=== PATIENT | male | born 1935 | race Caucasian/White ===

== ENCOUNTER 2022-10-14 11:21 | Emergency (ER) | payer MEDICARE, SELFPAY ==
[2022-10-14] VITALS (17 sets, daily range): BP systolic 140–203; BP diastolic 68–120; PULSE 66–86; RESP 11–22; TEMP 36.2; O2SAT 93–99; BMI 25.1
--- NOTE | 2022-10-14 11:34 | ED_ITS ---
HPI - Neuro Symptoms/Deficit <Cristal Godinez DO - Last Filed: 10/15/22 10:46> General Chief Complaint: Neuro Symptoms/Deficit Stated Complaint: thinks he leigh ann had a stroke last night Time Seen by Provider: 10/14/22 11:34 Source: patient Mode of arrival: Ambulatory Limitations: no limitations History of Present Illness HPI Narrative: This is a 86-year-old who presents with concern for possible stroke last night he had some difficulty with words that lasted about 10 minutes and then imp roved. Patient states he felt very tired afterwards went to bed and states woke up this morning and feels normal. He denies any droop or facial changes, no numbness, tingling or weakness gone gait issues no acute vision changes. Patient states he does sometimes get auras he seen his manager support services and talk to a neurologist about it they do not have any acute cause that they have shared with him but he has been told it is not concerning. He denies chest pain or shortness of breath, no headache, no nausea or vomiting no swelling in extremities. Patient states he did start hydrochlorothiazide for hypertension recently wondered if this might be the cause. Patient states he thinks he had a stroke 40 years ago he had an episode where he had what felt like his head being pushed to the side lasted for a period of time resolved was seen in the ED they were unsure the cause and about 10 years ago had a head CT and was told he would had prior stroke. 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 Patient [address] Eleazar Dahl through gets the majority of his care through there. He follows with Cardiology and has an echo scheduled in November or December. He has a strong family history with his mother, aunt and sibling all having strokes. On Anticoagulants: Yes (eliquis) Related Data Allergies Allergy/AdvReac Type Severity Reaction Status Date / Time atenolol Allergy Verified 10/14/22 11:29 lansoprazole [From Prevacid] Allergy Verified 10/14/22 11:29 metoprolol [From Toprol XL] Allergy Verified 10/14/22 11:29 Review of Systems <DO Fifi Pineda Last Filed: 10/15/22 10:46> Review of Systems ROS Unobtainable: All systems reviewed & are unremarkable except as noted in HPI and below Hematologic/Lymphatic On Anticoagulants: Yes (eliquis) Patient History <Cristal Godinez DO - Last Filed: 10/15/22 10:46> Social History Smoking Status: Unknown if ever smoked Smoking Status: Unknown if ever smoked alcohol intake frequency: holidays/special occasions only Substance Use Type: does not use Exam <Cristal Godinez DO - Last Filed: 10/15/22 10:46> Narrative Exam Narrative: GEN: well nourished, well appearing male, alert and oriented x 3, patient appea rs to be in mild distress. HEENT: Atraumatic, pupils are equal round reactive to light, extraocular movements are intact, nares are clear, TMs are clear with no fluid, there is no conjunctival pallor. Throat is clear without any exudates, erythema, tonsillar enlargement or uvular deviation, no facial droop. HEART: Regular rate and rhythm without murmur, clicks, rubs. No carotid bruits, pulses are equal in upper and lower extremities LUNGS:Lungs clear to auscultation, no wheezes, rales, crackles, chest moves symmetrically ABD:bowel sounds normal, soft, non-tender, no guarding, rebound, rigidity, no masses noted, no hepatosplenomegaly :No CVA tenderness MSCL: Non-tender, no muscle atrophy, muscles strength 5/5 upper and lower extremities, full range of motion, normal gait NEURO:CN 2-12 intact, sensation normal. finger nose finger test normal, heel woods test normal, romberg normal SKIN: No rash or skin changes. Initial Vital Signs Initial Vital Signs: Vital Signs Temperature 97.1 F L 10/14/22 11:27 Pulse Rate 84 10/14/22 11:27 Respiratory Rate 15 10/14/22 11:27 Blood Pressure 193/87 H 10/14/22 11:27 Pulse Oximetry 99 10/14/22 11:27 Oxygen Delivery Method 10/14/22 11:27 <Eleanor Still MD - Last Filed: 10/15/22 02:50> Initial Vital Signs Initial Vital Signs: Vital Signs Temperature 97.1 F L 10/14/22 11:27 Pulse Rate 84 10/14/22 11:27 Respiratory Rate 15 10/14/22 11:27 Blood Pressure 193/87 H 10/14/22 11:27 Pulse Oximetry 99 10/14/22 11:27 Oxygen Delivery Method 10/14/22 11:27 Scores <Cristal Godinez DO - Last Filed: 10/15/22 10:46> NIH Stroke Scale Level of Conciousness: Alert, keenly responsive Ask month/age: Answers both questions correctly. Open/close eyes, close hand: Performs both tasks correctly Best gaze horizontal: Normal Visual iniguez: No visual loss Facial palsy: Normal symetrical movement Left arm drift: No drift for full 10 sec Right arm drift: No drift for full 10 sec Left leg drift: No drift for full 5 sec Right leg drift: No drift for full 5 sec Limb ataxia: Absent Sensory on face/arms/legs: Normal, no sensory loss Best language: No aphasia, normal Dysarthria: Normal Extinction or inattention: No abnormality Total NIH Stroke scale score: 0 <Eleanor Still MD - Last Filed: 10/15/22 02:50> NIH Stroke Scale Total NIH Stroke scale score: 0 Course <Cristal Godinez DO - Last Filed: 10/15/22 10:46> Orders Ordered: Discontinued Medications Aspirin (Aspirin 81 Mg Chew Tab) 324 mg PO NOW ONE Stop: 10/14/22 16:29 Last Admin: 10/14/22 17:37 Dose: Not Given Documented By: NILSON Lorazepam (Lorazepam 0.5 Mg Tablet) 1 mg PO NOW ONE Stop: 10/14/22 17:31 Last Admin: 10/14/22 17:34 Dose: 1 mg Documented By: NILSON Vital Signs Vital signs: Vital Signs - 8 hr 10/14/22 19:07 10/14/22 19:58 Pulse Rate 78 75 Respiratory Rate 17 Blood Pressure 140/68 167/74 H Pulse Oximetry 98 96 Oxygen Delivery Method Room Air Room Air <Eleanor Still MD - Last Filed: 10/15/22 02:50> Orders Ordered: Discontinued Medications Aspirin (Aspirin 81 Mg Chew Tab) 324 mg PO NOW ONE Stop: 10/14/22 16:29 Last Admin: 10/14/22 17:37 Dose: Not Given Documented By: NILSON Lorazepam (Lorazepam 0.5 Mg Tablet) 1 mg PO NOW ONE Stop: 10/14/22 17:31 Last Admin: 10/14/22 17:34 Dose: 1 mg Documented By: NILSON Vital Signs Vital signs: Vital Signs - 8 hr 10/14/22 19:07 10/14/22 19:58 Pulse Rate 78 75 Respiratory Rate 17 Blood Pressure 140/68 167/74 H Pulse Oximetry 98 96 Oxygen Delivery Method Room Air Room Air MDM - Neuro Symptoms/Deficit <Cristal Godinez DO - Last Filed: 10/15/22 10:46> Lab Data Result diagrams: 10/14/22 11:40 10/14/22 11:40 Labs: Lab Results 10/14/22 10/14/22 10/14/22 Range/Units 11:40 11:40 11:40 WBC 5.8 (4.5-11.0) X10^3/uL RBC 4.60 (4.5-5.9) X10^6/uL Hgb 14.1 (13.5-17.5) g/dL Hct 42.6 (41-53) % MCV 92.6 (80-100) fL MCH 30.7 (26-34) PG MCHC 33.1 (30-36) % RDW 14.2 (11.6-14.8) % Plt Count 176 (150-400) X10^3/uL Neut % (Auto) 70.5 (50-75) % Lymph % (Auto) 18.3 L (25-40) % [place] % (Auto) 9.8 (3-14) % Eos % (Auto) 0.3 L (2-4) % Baso % (Auto) 1.1 (0-2) % Neut # (Auto) 4100 (4806-7865) /uL Lymph # (Auto) 1100 (2841-6158) /uL [place] # (Auto) 600 (0-900) /uL Eos # (Auto) 0 (0-450) /uL Baso # (Auto) 100 (0-100) /uL PT 13.8 H (10.1-12.7) SECONDS INR 1.2 (0.9-1.3) APTT 30 (26-36) SECONDS Sodium 141 (137-145) mmol/L Potassium 3.4 (3.4-5.1) mmol/L Chloride 104 (98-107) mmol/L Carbon Dioxide 27 (22-32) mmol/L BUN 20 (9-20) mg/dL Creatinine 0.98 (0.66-1.25) mg/dL Estimated GFR > 60 (>60) mL/min BUN/Creatinine Ratio 20.4 (6-22) Glucose 101 (80-110) mg/dL Calcium 9.5 (8.4-10.2) mg/dL Total Bilirubin 1.2 (0.2-1.3) mg/dL AST 32 (17-59) IU/L ALT 26 (<50) IU/L Alkaline Phosphatase 59 (38-126) U/L Total Creatine Kinase 39 L (55-170) U/L CK-MB (CK-2) TNP CK-MB (CK-2) Rel Index TNP Troponin I < 0.012 (0.01-0.034) ng/mL Total Protein 8.8 H (6.3-8.2) g/dL Albumin 4.4 (3.5-5.0) g/dL Globulin 4.4 H (1.7-4.1) g/dL Albumin/Globulin Ratio 1.0 (1.0-2.8) Urine Color Urine Appearance Urine pH (4.5-8.0) Ur Specific [place] (1.000-1.035) Urine Protein (Negative) Urine Glucose (UA) (Negative) g/dL Urine Ketones (NEGATIVE) Urine Occult Blood (Negative) Urine Nitrate (Negative) Urine Bilirubin (NEGATIVE) Urine Urobilinogen (0.2) E.U./dL Ur Leukocyte Esterase (NEGATIVE) Urine RBC (0-5/HPF) Urine WBC (0-5/HPF) Urine Bacteria (None) Ur Culture Indicated? U Opiates 300ng/mL cut (Negative) Ur Oxycodone Screen (Negative) Urine Methadone Screen (Negative) Ur Barbiturates Screen (Negative) U Tricyclic Antidepress (Negative) Ur Phencyclidine Scrn (Negative) Ur Amphetamines Screen (Negative) U Methamphetamines Scrn (Negative) Ur MDMA Scrn (Ecstasy) (Negative) U Benzodiazepines Scrn (Negative) Urine Cocaine Screen (Negative) U Marijuana (THC) Screen (Negative) Ethyl Alcohol < 10 ( - 10) mg/dL SARS-CoV-2 (PCR) (Negative) 10/14/22 10/14/22 10/14/22 Range/Units 14:15 14:15 14:16 WBC (4.5-11.0) X10^3/uL RBC (4.5-5.9) X10^6/uL Hgb (13.5-17.5) g/dL Hct (41-53) % MCV (80-100) fL MCH (26-34) PG MCHC (30-36) % RDW (11.6-14.8) % Plt Count (150-400) X10^3/uL Neut % (Auto) (50-75) % Lymph % (Auto) (25-40) % [place] % (Auto) (3-14) % Eos % (Auto) (2-4) % Baso % (Auto) (0-2) % Neut # (Auto) (0431-9482) /uL Lymph # (Auto) (1072-8235) /uL [place] # (Auto) (0-900) /uL Eos # (Auto) (0-450) /uL Baso # (Auto) (0-100) /uL PT (10.1-12.7) SECONDS INR (0.9-1.3) APTT (26-36) SECONDS Sodium (137-145) mmol/L Potassium (3.4-5.1) mmol/L Chloride (98-107) mmol/L Carbon Dioxide (22-32) mmol/L BUN (9-20) mg/dL Creatinine (0.66-1.25) mg/dL Estimated GFR (>60) mL/min BUN/Creatinine Ratio (6-22) Glucose (80-110) mg/dL Calcium (8.4-10.2) mg/dL Total Bilirubin (0.2-1.3) mg/dL AST (17-59) IU/L ALT (<50) IU/L Alkaline Phosphatase (38-126) U/L Total Creatine Kinase (55-170) U/L CK-MB (CK-2) CK-MB (CK-2) Rel Index Troponin I (0.01-0.034) ng/mL Total Protein (6.3-8.2) g/dL Albumin (3.5-5.0) g/dL Globulin (1.7-4.1) g/dL Albumin/Globulin Ratio (1.0-2.8) Urine Color Yellow Urine Appearance Clear Urine pH 7.0 (4.5-8.0) Ur Specific [place] <=1.005 (1.000-1.035) Urine Protein Negative (Negative) Urine Glucose (UA) Negative (Negative) g/dL Urine Ketones Negative (NEGATIVE) Urine Occult Blood Negative (Negative) Urine Nitrate Negative (Negative) Urine Bilirubin Negative (NEGATIVE) Urine Urobilinogen 0.2 (0.2) E.U./dL Ur Leukocyte Esterase Negative (NEGATIVE) Urine RBC 0-1/hpf (0-5/HPF) Urine WBC 0-1/hpf (0-5/HPF) Urine Bacteria None seen (None) Ur Culture Indicated? Cult not indicated U Opiates 300ng/mL cut Negative (Negative) Ur Oxycodone Screen Negative (Negative) Urine Methadone Screen Negative (Negative) Ur Barbiturates Screen Negative (Negative) U Tricyclic Antidepress Negative (Negative) Ur Phencyclidine Scrn Negative (Negative) Ur Amphetamines Screen Negative (Negative) U Methamphetamines Scrn Negative (Negative) Ur MDMA Scrn (Ecstasy) Negative (Negative) U Benzodiazepines Scrn Negative (Negative) Urine Cocaine Screen Negative (Negative) U Marijuana (THC) Screen Negative (Negative) Ethyl Alcohol ( - 10) mg/dL SARS-CoV-2 (PCR) Negative (Negative) Point of Care Testing Glucose POC [address] scan - head: Radiologist's Impression: Lico Escudero??86??M??1935 ? Allergy/Adv: atenolol, lansoprazole, metoprolol (More??) Close Head/Neck CTA (Signed) Agatha Gamez - 10/14/[address] (Signed) Agatha Gamez - 10/14/22 Launch?[place] [address] CT Scan Report Signed Patient: Lico Escudero MR#: [id number] : 1935 Acct:[id number] Age/Sex: 86 / M Date of Service: 10/14/22 Loc: ED Accession Number: [id number] ?? Procedure: CT head/brain wo con Ordering Provider: Cristal Godinez D.O. PROCEDURE:? CT HEAD/BRAIN WO CON ? INDICATIONS:? diff speech, last night. ? TECHNIQUE:? Noncontrast 4.5 mm thick angled axial sections acquired from the foramen magnum to the vertex, with coronal and sagittal reformats.? For radiation dose reduction, the following was used:? automated exposure control, adjustment of mA and/or kV according to patient size.? ? COMPARISON:? [facility], CT, CT HEAD WITHOUT CONTRAST, 05/07/2022, 17:48. ? FINDINGS:? Image quality:? Excellent.? ? CSF spaces:? Basal cisterns are patent.? No extra-axial fluid collections.? The ventricles are symmetric in size and shape.? ? Brain:? No intracranial bleeds or masses.? There is cerebral volume loss for age, with resultant ventricular and sulcal prominence.? There are periventricular and deep white matter chronic small vessel ischemic changes.? 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 ? Skull and face:? Calvarium and visualized facial bones appear intact, without suspicious lesions.? ? Sinuses:? Visualized sinuses and mastoids are clear.? ? IMPRESSION:? ? 1. No acute intracranial process. ? 2. Moderate atrophy and chronic microvascular ischemic changes. ? ? ? Dictated by: Agatha Gamze M.D. on 10/14/2022 at 12:35 ? ? Approved by: Agatha Gamez M.D. on 10/14/2022 at 12:35?? CTA - brain/neck: Radiologist's Impression: Close Head/Neck CTA (Signed) Agatha Gamez - 10/14/[address] (Signed) Agatha Gamez - 10/14/22 Launch?[place] [address] CT Scan Report Signed Patient: Lico Escudero MR#: [id number] : 1935 Acct:[id number] Age/Sex: 86 / M Date of Service: 10/14/22 Loc: ED Accession Number: [id number] ?? Procedure: CT angio head and neck Ordering Provider: Cristal Godinez D.O. PROCEDURE:? CT ANGIO HEAD AND NECK ? INDICATIONS:? diff speech, lastnight. ? TECHNIQUE:? After the administration of intravenous contrast, 1 mm thick sections acquired from the aortic arch through the [place].? Post-contrast 4.5 mm thick sections then re-acquired from the foramen magnum to the vertex.? 3-dimensional wnbzigs-yfeqczrcg-jdnihekxgf (MIP) and/or volume rendering reformats were acquired of the central intracranial vasculature and neck separately. For radiation dose reduction, the following was used:? automated exposure control, adjustment of mA and/or kV according to patient size.? ? COMPARISON:? None. ? FINDINGS:? Image quality:? Excellent.? ? BRAIN:? The ventricular system and cortical sulci demonstrate atrophy, consistent for the patient's stated age. There are areas of hypodensity within the periventricular and subcortical white matter.? There is no acute intra-or extra axial fluid collection. No acute hemorrhage, mass lesion or midline shift. Brainstem is unremarkable. Globes are symmetrical. Sinuses are aerated. Osseous structures are intact. ? HEAD CT ANGIOGRAPHY:? Anterior circulation:? Intracranial internal carotid arteries are normal in size and flow.? The flow within the paired anterior cerebral arteries is normal and symmetric.? The flow within the middle cerebral arteries is normal and symmetric.? The anterior communicating artery is seen.? No aneurysms are seen.? ? Posterior circulation:? Vertebral arteries are codominant.? Visualized portions of the vertebral arteries demonstrate normal caliber, and join to form a normal appearing basilar artery.? Flow within the posterior cerebral arteries is normal and symmetric.? No aneurysms are seen.? ? NECK CT ANGIOGRAPHY:? The origins of the left and right common, and external carotid arteries demonstrate no areas of hemodynamically significant stenosis, vascular occlusion or aneurysmal dilation. ?There is calcification at the origin of the left internal carotid artery with approximately 30-40%% stenosis.? Calcifications are noted at the origin of the right internal carotid artery without hemodynamically significant stenosis.? Origins of the left and right vertebral arteries demonstrate no areas of hemodynamically significant stenosis, vascular occlusion or aneurysmal dilation.? 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 Limited, visualized portions of the subclavian vasculature are unremarkable. ? ? IMPRESSION:? ? 1. No acute intracranial process. ? 2. Moderate atrophy and chronic microvascular ischemic changes. ? 3. No areas of hemodynamically significant stenosis, vascular occlusion or aneurysmal dilation within the anterior or posterior circulation.? ? 4. 30-40% narrowing at the origin of the left internal carotid artery.? ? Any quantitative measurements of stenosis were performed using NASCET criteria.? ? ? Dictated by: Agatha Gamez M.D. on 10/14/2022 at 13:18 ? ? Approved by: Agatha Gamez M.D. on 10/14/2022 at 13:22?? ECG Data Attestation: I personally reviewed and interpreted this ECG as follows: Prior ECG tracings: not available for review Interpretation: AFib rate of 78 QRS of 96 QTC 451. Nonspecific change. No priors. MDM Narrative Medical decision making narrative: This is an 86-year-old male who had what is described as speech changes in witn essed by his for approximately 10 minutes he is on Eliquis daily for remote history of blood clots, atorvastatin, lisinopril, verapamil, HCTZ for hypertension. Patient is hypertensive in the department was improving but after discussion with myself blood pressure increased again. His labs do not show acute cause, has 30-40% narrowing of the left ICA but otherwise negative CTA and negative head CT. Discussed with patient about keeping him for TIA/stroke observation they are concerned that if an observation they will be able to afford it financially. They are open to staying for MRI, and unable to get an echo through the department today. Patient signed out to Dr. Still while awaiting MRI results. Stroke Core Measures Exclusion Criteria TPA in CVA: Symptom Onset >3 or 4.5 Hours <Eleanor Still MD - Last Filed: 10/15/22 02:50> Lab Data Labs: Lab Results 10/14/22 10/14/22 10/14/22 Range/Units 11:40 11:40 11:40 WBC 5.8 (4.5-11.0) X10^3/uL RBC 4.60 (4.5-5.9) X10^6/uL Hgb 14.1 (13.5-17.5) g/dL Hct 42.6 (41-53) % MCV 92.6 (80-100) fL MCH 30.7 (26-34) PG MCHC 33.1 (30-36) % RDW 14.2 (11.6-14.8) % Plt Count 176 (150-400) X10^3/uL Neut % (Auto) 70.5 (50-75) % Lymph % (Auto) 18.3 L (25-40) % [place] % (Auto) 9.8 (3-14) % Eos % (Auto) 0.3 L (2-4) % Baso % (Auto) 1.1 (0-2) % Neut # (Auto) 4100 (1640-8700) /uL Lymph # (Auto) 1100 (5024-2340) /uL [place] # (Auto) 600 (0-900) /uL Eos # (Auto) 0 (0-450) /uL Baso # (Auto) 100 (0-100) /uL PT 13.8 H (10.1-12.7) SECONDS INR 1.2 (0.9-1.3) APTT 30 (26-36) SECONDS Sodium 141 (137-145) mmol/L Potassium 3.4 (3.4-5.1) mmol/L Chloride 104 (98-107) mmol/L Carbon Dioxide 27 (22-32) mmol/L BUN 20 (9-20) mg/dL Creatinine 0.98 (0.66-1.25) mg/dL Estimated GFR > 60 (>60) mL/min BUN/Creatinine Ratio 20.4 (6-22) Glucose 101 (80-110) mg/dL Calcium 9.5 (8.4-10.2) mg/dL Total Bilirubin 1.2 (0.2-1.3) mg/dL AST 32 (17-59) IU/L ALT 26 (<50) IU/L Alkaline Phosphatase 59 (38-126) U/L Total Creatine Kinase 39 L (55-170) U/L CK-MB (CK-2) TNP CK-MB (CK-2) Rel Index TNP Troponin I < 0.012 (0.01-0.034) ng/mL Total Protein 8.8 H (6.3-8.2) g/dL Albumin 4.4 (3.5-5.0) g/dL Globulin 4.4 H (1.7-4.1) g/dL Albumin/Globulin Ratio 1.0 (1.0-2.8) Urine Color Urine Appearance Urine pH (4.5-8.0) Ur Specific [place] (1.000-1.035) Urine Protein (Negative) Urine Glucose (UA) (Negative) g/dL Urine Ketones (NEGATIVE) Urine Occult Blood (Negative) Urine Nitrate (Negative) Urine Bilirubin (NEGATIVE) Urine Urobilinogen (0.2) E.U./dL Ur Leukocyte Esterase (NEGATIVE) Urine RBC (0-5/HPF) Urine WBC (0-5/HPF) Urine Bacteria (None) Ur Culture Indicated? U Opiates 300ng/mL cut (Negative) Ur Oxycodone Screen (Negative) Urine Methadone Screen (Negative) Ur Barbiturates Screen (Negative) U Tricyclic Antidepress (Negative) Ur Phencyclidine Scrn (Negative) Ur Amphetamines Screen (Negative) U Methamphetamines Scrn (Negative) Ur MDMA Scrn (Ecstasy) (Negative) U Benzodiazepines Scrn (Negative) Urine Cocaine Screen (Negative) U Marijuana (THC) Screen (Negative) Ethyl Alcohol < 10 ( - 10) mg/dL SARS-CoV-2 (PCR) (Negative) 10/14/22 10/14/22 10/14/22 Range/Units 14:15 14:15 14:16 WBC (4.5-11.0) X10^3/uL RBC (4.5-5.9) X10^6/uL Hgb (13.5-17.5) g/dL Hct (41-53) % MCV (80-100) fL MCH (26-34) PG MCHC (30-36) % RDW (11.6-14.8) % Plt Count (150-400) X10^3/uL Neut % (Auto) (50-75) % Lymph % (Auto) (25-40) % [place] % (Auto) (3-14) % Eos % (Auto) (2-4) % Baso % (Auto) (0-2) % Neut # (Auto) (8967-8302) /uL Lymph # (Auto) (8216-2566) /uL [place] # (Auto) (0-900) /uL Eos # (Auto) (0-450) /uL Baso # (Auto) (0-100) /uL PT (10.1-12.7) SECONDS INR (0.9-1.3) APTT (26-36) SECONDS Sodium (137-145) mmol/L Potassium (3.4-5.1) mmol/L Chloride (98-107) mmol/L Carbon Dioxide (22-32) mmol/L BUN (9-20) mg/dL Creatinine (0.66-1.25) mg/dL Estimated GFR (>60) mL/min BUN/Creatinine Ratio (6-22) Glucose (80-110) mg/dL Calcium (8.4-10.2) mg/dL Total Bilirubin (0.2-1.3) mg/dL AST (17-59) IU/L ALT (<50) IU/L Alkaline Phosphatase (38-126) U/L Total Creatine Kinase (55-170) U/L CK-MB (CK-2) CK-MB (CK-2) Rel Index Troponin I (0.01-0.034) ng/mL Total Protein (6.3-8.2) g/dL Albumin (3.5-5.0) g/dL Globulin (1.7-4.1) g/dL Albumin/Globulin Ratio (1.0-2.8) Urine Color Yellow Urine Appearance Clear Urine pH 7.0 (4.5-8.0) Ur Specific [place] <=1.005 (1.000-1.035) Urine Protein Negative (Negative) Urine Glucose (UA) Negative (Negative) g/dL Urine Ketones Negative (NEGATIVE) Urine Occult Blood Negative (Negative) Urine Nitrate Negative (Negative) Urine Bilirubin Negative (NEGATIVE) Urine Urobilinogen 0.2 (0.2) E.U./dL Ur Leukocyte Esterase Negative (NEGATIVE) Urine RBC 0-1/hpf (0-5/HPF) Urine WBC 0-1/hpf (0-5/HPF) Urine Bacteria None seen (None) Ur Culture Indicated? Cult not indicated U Opiates 300ng/mL cut Negative (Negative) Ur Oxycodone Screen Negative (Negative) Urine Methadone Screen Negative (Negative) Ur Barbiturates Screen Negative (Negative) U Tricyclic Antidepress Negative (Negative) Ur Phencyclidine Scrn Negative (Negative) Ur Amphetamines Screen Negative (Negative) U Methamphetamines Scrn Negative (Negative) Ur MDMA Scrn (Ecstasy) Negative (Negative) U Benzodiazepines Scrn Negative (Negative) Urine Cocaine Screen Negative (Negative) U Marijuana (THC) Screen Negative (Negative) Ethyl Alcohol ( - 10) mg/dL SARS-CoV-2 (PCR) Negative (Negative) Point of Care Testing Glucose POC 101 MDM Narrative Medical decision making narrative: This is an 86-year-old male who had what is described as speech changes in witnessed by his for approximately 10 minutes he is on Eliquis daily for remote history of blood clots, atorvastatin, lisinopril, verapamil, HCTZ for hypertension. Patient is hypertensive in the department was improving but after discussion with myself blood pressure increased again. His labs do not show acute cause, has 30-40% narrowing of the left ICA but otherwise negative CTA and negative head CT. Discussed with patient about keeping him for TIA/stroke observation they are concerned that if an observation they will be able to afford it financially. They are open to staying for MRI, and unable to get an echo through the department today. Patient signed out to Dr. Still while awaiting MRI results. Care is assumed, patient is seen and independently examined. He is completely back to baseline with no acute neurologic findings. Brain MR head and neck CTA and head CT are all unremarkable suggesting that his episode of word-finding difficulties lasting 10 minutes last night was likely a TIA. He currently is on Eliquis, blood pressure is controlled and he is on atorvastatin. I do not believe there is additional benefit to hospital admission at this time. Patient and his are quite relieved with the option of home discharge. The majority of their care is in [place] so I printed off copies of the imaging studies to send with them so they can share with his primary care providers. I have asked that he continue all of his current medications. Questions are answered and they are safe for home discharge Discharge Plan Departure Patient Disposition: Home Clinical Impression: TIA (transient ischemic attack) Instructions: DI for Transient Ischemic Attack Activity Restrictions/Additional Instructions: Thank you for coming in this evening You had a TIA, this is sometimes called a ?mini-stroke?. You had a full evaluation that does not suggest a full stroke or other abnormalities to explain her symptoms last night. The recommendations after a TIA our anticoagulation which you are already on(Eliquis), blood pressure control which you are adequately doing and lipid control, again you are already on medication for this. Please continue all of your medications. I have given you copies of the imaging studies of your brain to share with your primary care doctors. I would encourage you to follow-up with your primary care and replenishment specialist providers within the next 1-2 weeks. If you do have recurrent neurologic symptoms that make you think of stroke, I would encourage you to call 911 so that we can expedite treatment for you. Visit Report Forms: Patient Portal/API
--- NOTE | 2022-10-14 11:34 | DI.CT.S_ITS ---
PROCEDURE: CT HEAD/BRAIN WO CON INDICATIONS: diff speech, last night. TECHNIQUE: Noncontrast 4.5 mm thick angled axial sections acquired from the foramen magnum to the vertex, with coronal and sagittal reformats. For radiation dose reduction, the following was used: automated exposure control, adjustment of mA and/or kV according to patient size. COMPARISON: [facility], CT, CT HEAD WITHOUT CONTRAST, 05/07/2022, 17:48. FINDINGS: Image quality: Excellent. CSF spaces: Basal cisterns are patent. No extra-axial fluid collections. The ventricles are symmetric in size and shape. Brain: No intracranial bleeds or masses. There is cerebral volume loss for age, with resultant ventricular and sulcal prominence. There are periventricular and deep white matter chronic small vessel ischemic changes. 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 Skull and face: Calvarium and visualized facial bones appear intact, without suspicious lesions. Sinuses: Visualized sinuses and mastoids are clear. IMPRESSION: 1. No acute intracranial process. 2. Moderate atrophy and chronic microvascular ischemic changes. Dictated by: Agatha Gamez M.D. on 10/14/2022 at 12:35 Approved by: Agatha Gamez M.D. on 10/14/2022 at 12:35
--- NOTE | 2022-10-14 11:35 | DI.CT.S_ITS ---
PROCEDURE: CT ANGIO HEAD AND NECK INDICATIONS: diff speech, lastnight. TECHNIQUE: After the administration of intravenous contrast, 1 mm thick sections acquired from the aortic arch through the [place]. Post-contrast 4.5 mm thick sections then re-acquired from the foramen magnum to the vertex. 3-dimensional jkpiucl-dwyzyrltb-ubmwhzgibl (MIP) and/or volume rendering reformats were acquired of the central intracranial vasculature and neck separately. For radiation dose reduction, the following was used: automated exposure control, adjustment of mA and/or kV according to patient size. COMPARISON: None. FINDINGS: Image quality: Excellent. BRAIN: The ventricular system and cortical sulci demonstrate atrophy, consistent for the patient's stated age. There are areas of hypodensity within the periventricular and subcortical white matter. There is no acute intra-or extra axial fluid collection. No acute hemorrhage, mass lesion or midline shift. Brainstem is unremarkable. Globes are symmetrical. Sinuses are aerated. Osseous structures are intact. HEAD CT ANGIOGRAPHY: Anterior circulation: Intracranial internal carotid arteries are normal in size and flow. The flow within the paired anterior cerebral arteries is normal and symmetric. The flow within the middle cerebral arteries is normal and symmetric. The anterior communicating artery is seen. No aneurysms are seen. Posterior circulation: Vertebral arteries are codominant. Visualized portions of the vertebral arteries demonstrate normal caliber, and join to form a normal appearing basilar artery. Flow within the posterior cerebral arteries is normal and symmetric. No aneurysms are seen. NECK CT ANGIOGRAPHY: The origins of the left and right common, and external carotid arteries demonstrate no areas of hemodynamically significant stenosis, vascular occlusion or aneurysmal dilation. There is calcification at the origin of the left internal carotid artery with approximately 30-40%% stenosis. Calcifications are noted at the origin of the right internal carotid artery without hemodynamically significant stenosis. Origins of the left and right vertebral arteries demonstrate no areas of hemodynamically significant stenosis, vascular occlusion or aneurysmal dilation. 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 Limited, visualized portions of the subclavian vasculature are unremarkable. IMPRESSION: 1. No acute intracranial process. 2. Moderate atrophy and chronic microvascular ischemic changes. 3. No areas of hemodynamically significant stenosis, vascular occlusion or aneurysmal dilation within the anterior or posterior circulation. 4. 30-40% narrowing at the origin of the left internal carotid artery. Any quantitative measurements of stenosis were performed using NASCET criteria. Dictated by: Agatha Gamez, M.D. on 10/14/2022 at 13:18 Approved by: Agatha Gamez M.D. on 10/14/2022 at 13:22
[2022-10-14 12:00] LABS: Add Manual Diff / Slide Review NO; Basophils Absolute Auto 100 /uL (0-100); Basophils Percent Auto 1.1 % (0-2); Eosinophils Absolute Auto 0 /uL (0-450); Eosinophils Percent Auto 0.3 % (2-4); Hematocrit 42.6 % (41-53); Hemoglobin 14.1 g/dL (13.5-17.5); Lymphocytes Absolute Auto 1100 /uL (1100-4500); Lymphocytes Percent Auto 18.3 % (25-40); Mean Corpuscular HGB Conc 33.1 % (30-36); Mean Corpuscular Hemoglobin 30.7 PG (26-34); Mean Corpuscular Volume 92.6 fL (80-100); Monocytes Absolute Auto 600 /uL (0-900); Monocytes Percent Auto 9.8 % (3-14); Neutrophils Absolute Auto 4100 /uL (1500-7000); Neutrophils Percent Auto 70.5 % (50-75); Platelet Count 176 X10^3/uL (150-400); Red Cell Distribution Width 14.2 % (11.6-14.8); White Blood Cell Count 5.8 X10^3/uL (4.5-11.0)
[2022-10-14 12:10] LABS: INR 1.2 (0.9-1.3); Prothrombin Time 13.8 SECONDS (10.1-12.7)
[2022-10-14 12:11] LABS: Alanine Aminotransferase 26 IU/L (<50); Albumin 4.4 g/dL (3.5-5.0); Alkaline Phosphatase 59 U/L (38-126); Aspartate Aminotransferase 32 IU/L (17-59); BUN Creatinine Ratio 20.4 (6-22); Bilirubin Total 1.2 mg/dL (0.2-1.3); Blood Urea Nitrogen 20 mg/dL (9-20); Calcium 9.5 mg/dL (8.4-10.2); Carbon Dioxide 27 mmol/L (22-32); Chloride 104 mmol/L (98-107); Creatine Kinase 39 U/L (55-170); Estimated Glomerular Filt Rate > 60 mL/min (>60); Ethanol (ETOH) < 10 mg/dL; Globulin 4.4 g/dL (1.7-4.1); Glucose 101 mg/dL (80-110); HEMOLYSIS < 15 (0-50); Potassium 3.4 mmol/L (3.4-5.1); Sodium 141 mmol/L (137-145); Total Protein 8.8 g/dL (6.3-8.2)
[2022-10-14 12:13] LABS: PTT Partial Thromboplastin Tim 30 SECONDS (26-36)
[2022-10-14 12:22] LABS: Troponin I < 0.012 ng/mL (0.01-0.034)
[2022-10-14 14:39] LABS: COVID19 -Nasal RAPID Negative (Negative)
[2022-10-14 14:49] LABS: Appearance Urine UA CLEAR; Bilirubin Urine UA NEGATIVE (NEGATIVE); Color Urine UA YELLOW; Glucose Urine UA NEGATIVE (Negative); Ketones Urine UA NEGATIVE (NEGATIVE); Leukocyte Esterase Urine UA NEGATIVE (NEGATIVE); Nitrite Urine UA NEGATIVE (Negative); Occult Blood Urine UA NEGATIVE (Negative); Protein Urine UA NEGATIVE (Negative); Specific Gravity Urine UA <=1.005 (1.000-1.035); Urobilinogen Urine UA 0.2 E.U./dL (0.2)
[2022-10-14 14:53] LABS: UR Morphine/Opiate cutoff 300 Negative (Negative); Ur Creatinine Normal (Normal); Ur Specific Gravity Normal (Normal); Urine Amphetamines Negative (Negative); Urine Barbiturates Negative (Negative); Urine Benzodiazepines Negative (Negative); Urine Cocaine Negative (Negative); Urine MDMA Negative (Negative); Urine Methadone Negative (Negative); Urine Methamphetamines Negative (Negative); Urine Oxycodone Negative (Negative); Urine Phencyclidine Negative (Negative); Urine Tetrahydrocannabinol Negative (Negative); Urine Tricyclic Antidepressant Negative (Negative); Urine pH Normal (Normal)
[2022-10-14 14:56] LABS: Bacteria Urine None Seen; Culture Indicated Urine Cult Not Indicated; RBC Urine 0-1/HPF (0-5/HPF); WBC Urine 0-1/HPF (0-5/HPF)
--- NOTE | 2022-10-14 15:33 | DI.MRI.S_ITS ---
PROCEDURE: MR HEAD/BRAIN WO CON INDICATIONS: tia, speech TECHNIQUE: Non-contrast axial T1 spin echo, axial T2 fast spin echo, sagittal and axial FLAIR, coronal T2 fast spin echo, axial gradient echo, axial diffusion and ADC through the brain. COMPARISON: None. FINDINGS: No restricted diffusion to indicate recent ischemia. The major intracranial vascular flow-related signal voids at the base of the brain are maintained, consistent with patency. 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 Moderate global cerebral volume loss and chronic microvascular ischemic changes. No findings of mass effect or midline shift. The ventricular system and basilar cisterns are patent. Midline structures normal in configuration. No gross orbital abnormality. Paranasal sinuses and mastoid air cells are predominantly clear. IMPRESSION: No acute infarct or other acute finding. Dictated by: Thierno Patrick M.D. on 10/14/2022 at 18:40 Approved by: Thierno Patrick M.D. on 10/14/2022 at 18:41
[2022-10-14] MEDS: LORazepam 0.5 MG TABLET 1 MG PO (17:34)
--- NOTE | 2022-10-14 18:08 | PC.NURSE ---
Pt left for MRI @ 1806
== END 2022-10-14 20:21 | disposition home or self-care (01) ==
PROVIDERS: Emergency Provider Emergency Medicine
DX: G45.9 Transient cerebral ischemic attack, unspecified (principal); I10 Essential (primary) hypertension; R07.9 Chest pain, unspecified; Z79.01 Long term (current) use of anticoagulants; Z20.822 Contact with and (suspected) exposure to COVID-19; Z79.899 Other long term (current) drug therapy
CPT/HCPCS: 36415; 70450; 70496; 70498; 70551; 80053; 80305; 80320; 81001; 82550; 82962; 84484; 85025; 85610; 85730; 87635; 93005; 99285; C9803; Q9967

== ENCOUNTER 2023-10-12 08:13 | Emergency (ER) | payer MEDICARE, SELFPAY ==
[2023-10-12] VITALS (25 sets, daily range): BP systolic 151–202; BP diastolic 73–85; PULSE 64–76; RESP 12–25; TEMP 36.5; O2SAT 96–100; BMI 26.2
--- NOTE | 2023-10-12 08:42 | ED_ITS ---
HPI - Abdominal Pain General Chief Complaint: Abdominal Pain Stated Complaint: med reaction/abdominal pain Time Seen by Provider: 10/12/23 08:20 Source: patient Mode of arrival: Ambulatory History of Present Illness HPI narrative: 87-year-old male with history of AFib on Eliquis, hypertension, hyperlipidemia presents by EMS from home for right-sided flank pain and diarrhea since last night. Patient states that yesterday he was started on a new blood pressure medication olmesartan, and he believes that his symptoms are related to a medication side effect. Pain is currently well controlled. Reports compliance with his Eliquis. He did not take his morning dose, but otherwise has not missed any doses. Related Data Allergies Allergy/AdvReac Type Severity Reaction Status Date / Time atenolol Allergy Verified 10/12/23 08:27 lansoprazole [From Prevacid] Allergy Verified 10/12/23 08:27 metoprolol [From Toprol XL] Allergy Verified 10/12/23 08:27 Review of Systems Review of Systems Narrative: Negative except as noted above Patient History Social History Smoking Status: Unknown if ever smoked Smoking Status: Unknown if ever smoked alcohol intake frequency: holidays/special occasions only Substance Use Type: does not use Exam Initial Vital Signs Initial Vital Signs: Vital Signs Temperature 97.7 F 10/12/23 08:20 Pulse Rate 64 10/12/23 08:20 Respiratory Rate 16 10/12/23 08:20 Blood Pressure 181/79 H 10/12/23 08:20 Pulse Oximetry 98 10/12/23 08:20 Oxygen Delivery Method Room Air 10/12/23 08:20 Const: Awake, alert, no acute distress, nontoxic appearing Cardiac: Irregularly irregular RESP: unlabored, clear bilaterally, no wheezing GI: Atraumatic, soft, nontender, nondistended, no rebound, no guarding Back: No midline tenderness, right-sided CVA tenderness to percussion. Skin: Warm, Dry, intact, no rashes Neuro: AO x3, CN II-XII grossly intact, moves all extremities Psych: affect normal, mood normal, not suicidal, not homicidal Course Orders Ordered: ED Orders 10/12/23 08:50 Ammonia (NH3) Stat 10/12/23 08:56 UA Complete [Urinalysis and Microscopic] Stat 10/12/23 09:23 CT abdomen pelvis w con Stat 10/12/23 10:05 CT angio abdomen pelvis Stat Discontinued Medications Heparin Sodium (Porcine) (Heparin 5,000 Unit/Ml Vial) 6,800 unit 80 unit/kg (6800 unit) IV NOW ONE Stop: 10/12/23 10:52 Last Admin: 10/12/23 11:09 Dose: 6,800 unit Documented By: NILSON Heparin Sodium/Dextrose (Heparin Drip) 25,000 unit in 500 mls @ 30.699 mls/hr IV CONT OTILIA; Protocol Last Titration: 10/12/23 13:53 Dose: 0 units/kg/hr, 0 mls/hr Documented By: NILSON Co-signed By: NILSON(2) Admin: 10/12/23 11:11 Dose: 18.18 units/kg/hr, 31 mls/hr Documented By: NILSON Co-signed By: SHAWN Vital Signs Vital signs: Vital Signs - 8 hr 10/12/23 10:08 10/12/23 10:09 10/12/23 10:09 Pulse Rate 72 Respiratory Rate 18 Blood Pressure 202/81 H Pulse Oximetry 98 98 10/12/23 10:30 10/12/23 10:31 10/12/23 10:31 Pulse Rate 68 66 Respiratory Rate 16 15 Blood Pressure 176/73 H Pulse Oximetry 98 96 10/12/23 11:00 10/12/23 11:01 10/12/23 11:01 Pulse Rate 70 76 Respiratory Rate 23 18 Blood Pressure 186/84 H Pulse Oximetry 98 97 10/12/23 11:30 10/12/23 11:31 10/12/23 11:31 Pulse Rate 69 70 Respiratory Rate 20 19 Blood Pressure 184/80 H Pulse Oximetry 97 97 10/12/23 11:40 10/12/23 11:40 10/12/23 11:45 Pulse Rate 76 73 Respiratory Rate 25 H 18 Blood Pressure 197/85 H Pulse Oximetry 98 97 10/12/23 11:45 10/12/23 12:00 10/12/23 12:00 Pulse Rate 68 Respiratory Rate 12 Blood Pressure 178/82 H 151/74 H Pulse Oximetry 96 10/12/23 12:15 10/12/23 12:15 10/12/23 12:30 Pulse Rate 68 67 Respiratory Rate 15 14 Blood Pressure 173/81 H Pulse Oximetry 97 10/12/23 12:31 10/12/23 12:31 10/12/23 12:45 Pulse Rate 70 65 Respiratory Rate 12 14 Blood Pressure 193/79 H Pulse Oximetry 10/12/23 12:45 10/12/23 13:00 10/12/23 13:00 Pulse Rate 67 Respiratory Rate 13 Blood Pressure 158/80 H 190/80 H Pulse Oximetry 10/12/23 13:15 10/12/23 13:15 10/12/23 13:30 Pulse Rate 71 69 Respiratory Rate 13 15 Blood Pressure 175/77 H Pulse Oximetry 10/12/23 13:30 Pulse Rate Respiratory Rate Blood Pressure 171/78 H Pulse Oximetry MDM - Abdominal Pain Differential Diagnosis Differential diagnosis: Likely abdominal pain, acute appendicitis and calculus of kidney Lab Data 10/12/23 08:30 10/12/23 08:30 Labs: Lab Results 10/12/23 10/12/23 10/12/23 Range/Units 08:30 08:50 08:56 WBC 8.0 (4.5-11.0) X10^3/uL RBC 4.02 L (4.5-5.9) X10^6/uL Hgb 12.7 L (13.5-17.5) g/dL Hct 38.0 L (41-53) % MCV 94.7 (80-100) fL MCH 31.6 (26-34) PG MCHC 33.3 (30-36) % RDW 14.0 (11.6-14.8) % Plt Count 159 (150-400) X10^3/uL Neut % (Auto) 86.7 H (50-75) % Lymph % (Auto) 7.2 L (25-40) % [place] % (Auto) 5.5 (3-14) % Eos % (Auto) 0.1 L (2-4) % Baso % (Auto) 0.5 (0-2) % Neut # (Auto) 7000 (0979-1456) /uL Lymph # (Auto) 600 L (2241-5580) /uL [place] # (Auto) 400 (0-900) /uL Eos # (Auto) 0 (0-450) /uL Baso # (Auto) 0 (0-100) /uL APTT 28 (25.1-36.5) SECONDS Sodium 140 (137-145) mmol/L Potassium 4.5 (3.4-5.1) mmol/L Chloride 107 (98-107) mmol/L Carbon Dioxide 28 (22-32) mmol/L BUN 18 (9-20) mg/dL Creatinine 1.08 (0.66-1.25) mg/dL Estimated GFR > 60 (>60) mL/min BUN/Creatinine Ratio 16.7 (6-22) Glucose 154 H (80-110) mg/dL Calcium 9.9 (8.4-10.2) mg/dL Total Bilirubin 1.1 (0.2-1.3) mg/dL AST 28 (17-59) IU/L ALT 22 (<50) IU/L Alkaline Phosphatase 52 (38-126) U/L Ammonia < 9 L (9-30) umol/L Total Protein 8.6 H (6.3-8.2) g/dL Albumin 4.2 (3.5-5.0) g/dL Globulin 4.4 H (1.7-4.1) g/dL Albumin/Globulin Ratio 1.0 (1.0-2.8) Lipase 69 (23-300) U/L Urine Color Yellow Urine Appearance Clear Urine pH 6.5 (4.5-8.0) Ur Specific [place] 1.015 (1.000-1.035) Urine Protein Negative (Negative) Urine Glucose (UA) Negative (Negative) g/dL Urine Ketones Negative (NEGATIVE) Urine Occult Blood Negative (Negative) Urine Nitrate Negative (Negative) Urine Bilirubin Negative (NEGATIVE) Urine Urobilinogen 0.2 (0.2) E.U./dL Ur Leukocyte Esterase Negative (NEGATIVE) Urine RBC None seen (0-5/HPF) Urine WBC None seen (0-5/HPF) Ur Squamous Epith Cells 0-1 /hpf (0-5/HPF) Urine Bacteria None seen (None) Ur Culture Indicated? Cult not indicated MDM Narrative Medical decision making narrative: Well-appearing patient with right-sided pain and diarrhea. Believe that the initiation of new medication is coincidental to patient's symptoms. Abdomen is soft, some flank tenderness on the right side. Will order labs and CT imaging. Laboratory work is reviewed, no acute abnormalities identified. I received a call from Radiology at [address] scan. There is what appears to be an acute infarct of the right kidney and CT angio with contrast was recommended. CT angio ordered, CT department's notified that double bolus of contrast was approved by Radiology. 1100 - CT angio of the abdomen and pelvis shows probable thrombus in the right renal artery. Based on the appearance of the thrombus it appeared to be acute. Interventional radiology stated that based on the findings there was chance that the kidney could be salvaged, and this should be done as soon as possible. I spoke with Dr. Mclaughlin of Interventional Radiology, who stated that they have another procedure currently scheduled, and if a different facility could intervene on the patient quicker this would be ideal, however if no alternate facilities are found they would accept the transfer. Recommended initiation of heparin bolus and drip, this was ordered. Despite calls to numerous different facilities we were unable to find an available accepting facility that could intervene on the patient in a timely manner. Call placed back to [facility], Dr. Mclaughlin of Interventional Radiology excellent with the case and recommended ED to ED transfer. Discussed with Dr. Tabares of ER, who accepted the patient for transfer. Patient and informed of all lab and imaging findings as well as the plan to transfer for interventional radiology care. They are in agreement at this time. At time of transfer patient hemodynamically stable, pain well controlled, on heparin drip. Critical Care Time Critical Care Time Critical Care Time: Yes Total Critical Care Time: 56 Attestation: Renal artery embolus requiring emergent transfer for possible embolectomy Discharge Plan Departure Patient Disposition: [facility] Clinical Impression: Renal artery embolus
[2023-10-12 08:48] LABS: Add Manual Diff / Slide Review NO; Basophils Absolute Auto 0 /uL (0-100); Basophils Percent Auto 0.5 % (0-2); Eosinophils Absolute Auto 0 /uL (0-450); Eosinophils Percent Auto 0.1 % (2-4); Hemoglobin 12.7 g/dL (13.5-17.5); Lymphocytes Absolute Auto 600 /uL (1100-4500); Lymphocytes Percent Auto 7.2 % (25-40); Mean Corpuscular HGB Conc 33.3 % (30-36); Mean Corpuscular Hemoglobin 31.6 PG (26-34); Mean Corpuscular Volume 94.7 fL (80-100); Monocytes Absolute Auto 400 /uL (0-900); Monocytes Percent Auto 5.5 % (3-14); Neutrophils Absolute Auto 7000 /uL (1500-7000); Neutrophils Percent Auto 86.7 % (50-75); Platelet Count 159 X10^3/uL (150-400); Red Blood Cell Count 4.02 X10^6/uL (4.5-5.9)
[2023-10-12 08:55] LABS: Alanine Aminotransferase 22 IU/L (<50); Albumin 4.2 g/dL (3.5-5.0); Alkaline Phosphatase 52 U/L (38-126); Aspartate Aminotransferase 28 IU/L (17-59); BUN Creatinine Ratio 16.7 (6-22); Bilirubin Total 1.1 mg/dL (0.2-1.3); Blood Urea Nitrogen 18 mg/dL (9-20); Calcium 9.9 mg/dL (8.4-10.2); Carbon Dioxide 28 mmol/L (22-32); Chloride 107 mmol/L (98-107); Estimated Glomerular Filt Rate > 60 mL/min (>60); Globulin 4.4 g/dL (1.7-4.1); Glucose 154 mg/dL (80-110); HEMOLYSIS < 15 (0-50); Lipase 69 U/L (23-300); Potassium 4.5 mmol/L (3.4-5.1); Sodium 140 mmol/L (137-145); Total Protein 8.6 g/dL (6.3-8.2)
[2023-10-12 09:05] LABS: Appearance Urine UA CLEAR; Bilirubin Urine UA NEGATIVE (NEGATIVE); Color Urine UA YELLOW; Glucose Urine UA NEGATIVE (Negative); Ketones Urine UA NEGATIVE (NEGATIVE); Leukocyte Esterase Urine UA NEGATIVE (NEGATIVE); Nitrite Urine UA NEGATIVE (Negative); Occult Blood Urine UA NEGATIVE (Negative); Protein Urine UA NEGATIVE (Negative); Specific Gravity Urine UA 1.015 (1.000-1.035); Urobilinogen Urine UA 0.2 E.U./dL (0.2); pH Urine UA 6.5 (4.5-8.0)
[2023-10-12 09:13] LABS: Bacteria Urine None Seen; Culture Indicated Urine Cult Not Indicated; RBC Urine None Seen (0-5/HPF); Squamous Epithelial Cell Urine 0-1 /HPF (0-5/HPF); WBC Urine None Seen (0-5/HPF)
[2023-10-12 09:17] LABS: Ammonia (NH3) < 9 umol/L (9-30)
--- NOTE | 2023-10-12 09:23 | DI.CT.S_ITS ---
PROCEDURE: CT ABDOMEN PELVIS W CON INDICATIONS: RLQ ABDOMINAL PAIN, ABD DISTENSION TECHNIQUE: After the administration of oral and IV contrast, axial sections were acquired from the lung bases to the pubic symphysis. Coronal and sagittal reformats were performed. For radiation dose reduction, the following was used: automated exposure control, adjustment of mA and/or kV according to patient size. COMPARISON: None. FINDINGS: Image quality: Excellent. Lung bases: Unremarkable. Heart: Enlarged. ABDOMEN: Liver: No solid mass. Macro lobulated liver contour. Patent portal vein. Gallbladder: Cholecystectomy. Biliary ducts: No biliary dilation. Pancreas: No ductal dilation. Spleen: Size is within normal limits. Adrenal Glands: 1.2 centimeter left adrenal nodule Kidneys and Ureters: There is lack of enhancement of the right kidney. No hydronephrosis. No nephrolithiasis. Stomach and Bowel: Normal colonic caliber, without significant wall thickening. Peritoneum: No abnormal intraperitoneal fluid. No free air. Ventral Wall: No hernia. Abdominal Nodes: No retroperitoneal or mesenteric adenopathy by size criteria. Vessels: Filling defect within right renal artery (series 2, image 22). PELVIS: Pelvic Organs: Unremarkable. Bladder: Unremarkable. Pelvic Nodes: No enlarged lymph nodes. Miscellaneous: No inguinal hernias are seen. Bones: Unremarkable. IMPRESSION: Infarct of the right kidney, with filling defect within the right renal artery which could represent either thrombus or dissection. Consider abdominal CTA. Findings discussed with Dr. Bhat at time of dictation. Dictated by: Lucio Verdin M.D. on 10/12/2023 at 9:30 Approved by: Lucio Verdin M.D. on 10/12/2023 at 9:35
--- NOTE | 2023-10-12 10:05 | DI.CT.S_ITS ---
PROCEDURE: CT ANGIO ABDOMEN PELVIS INDICATIONS: INFARCTED R KIDNEY TECHNIQUE: After the administration of intravenous contrast, 2.5 mm sections acquired from the diaphragm to the iliac crests. 10 mm maximum intensity projection (MIP) coronal and sagittal reformats were then performed. For radiation dose reduction, the following was used: automated exposure control. COMPARISON: [facility], CT, CT ABDOMEN PELVIS W CON, 10/12/2023, 9:18. FINDINGS: Image quality: Excellent. Extravascular tissues: Mild dependent atelectasis is present at the lung bases. No pleural effusion. Heart size is mildly enlarged. No pericardial effusion. Liver is normal in size and enhancement. Gallbladder is not visualized and may be surgically absent . Biliary system is non dilated. Pancreas enhances normally. Spleen is normal in size and enhancement. No adrenal nodules. The left kidney demonstrates normal size and enhancement. There is excretion of contrast within the left renal collecting system. No hydronephrosis. There is little to no contrast opacification of the right kidney. There is mild right perinephric fat stranding. No hydronephrosis. No excretion of contrast in the right renal collecting system. Non-opacified bowel loops demonstrate normal wall thickness and caliber. No free fluid or air. No retroperitoneal or mesenteric adenopathy. No ventral hernias. No suspicious bony abnormalities. No vertebral body compression fractures. Abdominal aorta: Scattered atheromatous calcifications are present. Mesenteric arteries: The celiac axis and SIRIA are patent. Renal arteries: The left renal artery is patent. A high-grade stenosis is present at the origin. A high-grade stenosis is present at the origin of the right renal artery. Within the midportion of the main right renal artery is a hypodense 1 cm in length filling defects suggesting an acute embolus. Thrombus is present within the downstream kidney. However, a solitary branch of the right renal artery appears perfused. This branch supplies the middle and inferior right kidney. IMPRESSION: 1. Filling defect within the midportion of the main right renal artery. In a patient with a history of AFib, this finding suggests an acute renal artery embolus. Of note, a solitary branch of the renal artery remains perfused. Overall, there is little to no flow to the right kidney. This finding was discussed with Dr. Bhat at 11:00 a.mChacorta On October 12, 2023. Dictated by: Vicenta Bettencourt M.D. on 10/12/2023 at 10:48 Approved by: Vicenta Bettencourt M.D. on 10/12/2023 at 11:06
[2023-10-12 11:02] LABS: PTT Partial Thromboplastin Tim 28 SECONDS (25.1-36.5)
[2023-10-12] MEDS: HEPARIN 5,000 UNIT/ML VIAL 6800 UNIT IV (11:09)
[2023-10-12] MEDS: HEPARIN DRIP 25,000 UNIT/500 ML IV.SOLN 31 UNIT IV (11:11)
--- NOTE | 2023-10-12 12:29 | PC.NURSE ---
Hospital call for patient transfer with renal infarction [id number]- [facility], spoke with Laly, no waitlist 1118- [facility], spoke with gorge, on waitlist [id number]- , spoke with Stephany, on waitlist [id number]- [facility] ED, Dr. Bhat spoke with ED doctor about potential ED to ED transfer
--- NOTE | 2023-10-12 13:55 | PC.NURSE ---
Report given to Padmini Kilpatrick. Pt transported to [facility], pt left with heparin running at 31ml/hr (18.1 units/kg/hr). Heparin stopped in JAN and rate paused per protocol for d/c.
== END 2023-10-12 13:57 | disposition short-term general hospital (02) ==
PROVIDERS: Emergency Provider Emergency Medicine
DX: N28.0 Ischemia and infarction of kidney (principal); I48.91 Unspecified atrial fibrillation; I10 Essential (primary) hypertension; Z79.01 Long term (current) use of anticoagulants
CPT/HCPCS: 36415; 74174; 74177; 80053; 81001; 82140; 83690; 85025; 85730; 96365; 96366; 99284; J1644; Q9967